=== PATIENT | female | born 1985 | race Two or more races ===

== ENCOUNTER → 2018-11-06 | Outpatient (CLI) | payer BC ==
--- NOTE | 2018-11-08 15:10 | SLEEP ---
DATE OF STUDY: 11/06/2018 ATTENDING PHYSICIAN: Dr. Ole Atkinson. The patient is 33 years old who weighs 330 pounds with a BMI of 55. The patient's [place] score was 16. The patient is not on any medications. The patient underwent sleep study at [facility] to rule out ROHIT. During the night study, the patient spent 428 minutes in bed and slept for 385 minutes with a sleep efficiency of 90%. Sleep latency was 7 minutes with a REM latency of 172 minutes. Overall, sleep architecture showed normal stage 1 sleep, increased stage 2 sleep, increased slow wave and reduced REM sleep which was 11% of the total sleep time. During the night study, the patient had 3 obstructive apneas, no mixed or central apneas and 8 hypopneas. The patient's apnea hypopnea index was 2 per hour, supine index 3 per hour with a REM index of 13 per hour. EKG monitoring revealed normal sinus rhythm, average heart rate was 81 beats per minute. No arrhythmias observed. Nocturnal oximetry study was within normal limits. Mean saturation of 97% with the lowest of 89%. No clinically significant PLMS observed. Due to low AHI, the patient did not meet the split night criteria for CPAP initiation. Flow channel was on and off during this testing; however, it did not affect the overall results. IMPRESSION: 1. No clinically significant sleep disordered breathing. 2. No clinically significant nocturnal hypoxia. 3. No clinically significant PLMS. RECOMMENDATIONS: 1. The patient did not meet the split night criteria for CPAP initiation. 2. The patient has [id number] subjective hypersomnia. If clinical suspicion for other disorders such as narcolepsy or idiopathic hypersomnia is high, then consider doing multiple sleep latency tests. 3. The patient is not on any sedative medications as reported. 4. Avoid [place] depressants. 5. Caution regarding driving until the patient's hypersomnia is resolved. GERALD LONG MD DR: ONOFRE/willian JOB#: [id number] / [id number] OLE Holguin MD
== END | disposition home or self-care (01) ==
LOC: MERGE 18:30 → SLPLAB 18:43
PROVIDERS: ATTEND Family Medicine
DX: R06.83 Snoring (principal)
CPT/HCPCS: 95810